=== PATIENT | male | born 1970 | race Caucasian/White ===

== ENCOUNTER 2018-04-20 07:14 | Day surgery (SDC) | payer OTHER ==
[~2018-04-20 07:14] MED LIST: COZAAR50 MG PO
[2018-04-20] MEDS ORDERED: RECTICARE30 GM TOP (08:21)
[2018-04-20] MEDS ORDERED: PERCOCET 5-3251 EACH PO (08:21)
[2018-04-20] MEDS ORDERED: DERMOPLAST PAIN78 GM TOP (08:22)
== END 2018-04-20 14:00 | disposition home or self-care (01) ==
LOC: CIR.AMB 07:14
DX: K60.3 Anal fistula (principal)